=== PATIENT | male | born 1985 | race Caucasian/White ===

== ENCOUNTER 2016-12-22 20:53 | Emergency (ER) | payer SELFPAY ==
[~2016-12-22] VITALS: Ht 162.6 cm; Wt 66.1 kg
[~2016-12-22 20:53] MED LIST: TRAM50 PO; Z.0.NO CURRENT MEDS
[2016-12-22 21:02] VITALS: BP 156/87; PULSE 81; RESP 20; TEMP 98.2; O2SAT 99
[2016-12-22] MEDS ORDERED: LAMO100 PO (21:20)
[2016-12-22] MEDS ORDERED: ZOLO100T PO (21:20)
[2016-12-22] MEDS ORDERED: XANA1TAB2 PO (21:20)
[2016-12-22 21:21] VITALS: O2SAT 99
--- NOTE | 2016-12-22 21:22 | PD ---
HPI Chief Complaint: Chest Pain Time Seen by Provider: 21:19 Travel History International Travel<30 days: No Contact w/Intl Traveler<30days: No Traveled to known affect area: No History of Present Illness HPI This is a 31-year-old tobacco user who presents for evaluation of left-sided chest pain. Symptoms started 3-4 days ago. He describes it as a sharp pain which is worse with movement and deep inspiration. He has been using ibuprofen with minimal relief which prompted evaluation. He denies any recent illness. He denies any shortness of breath, cough or congestion, rash, abdominal pain, nausea or vomiting, fevers or chills, flank pain, recent travel, recent surgery , calf swelling. No history of DVT or PE. He has no other complaints at this time. [facility] Past Medical History Diminished Hearing: No Past Surgical History Oral Surgery: Yes (ALL UPPER TEETH EXTRACTED.) Social History Alcohol Use: No Tobacco Use: Yes (1 PPD) Substance Use: No Allergies-Medications (Allergen,Severity, Reaction): Coded Allergies: No Known Allergies (Verified , 12/22/16) Reported Meds & Prescriptions Reported Meds & Active Scripts Active Azithromycin 250 Mg Tab 250 Mg PO DAILY 4 Days Ibuprofen 800 Mg Tab 800 Mg PO Q6HR PRN Reported Xanax (Alprazolam) 1 Mg Tab 1 Mg PO Q8H PRN Lamictal (Lamotrigine) 100 Mg Tab 100 Mg PO DAILY Zoloft (Sertraline HCl) 100 Mg Tab 100 Mg PO DAILY Review of Systems Except as stated in HPI: all other systems reviewed are Neg Physical Exam Narrative GENERAL: Well-developed well-nourished male in no acute distress SKIN: Warm and dry. HEAD: Atraumatic. Normocephalic. EYES: Pupils equal and round. No scleral icterus. No injection or drainage. ENT: No nasal bleeding or discharge. Mucous membranes pink and moist. NECK: Trachea midline. No JVD. CARDIOVASCULAR: Regular rate and rhythm. No murmur appreciated. RESPIRATORY: No accessory muscle use. Clear to auscultation. Breath sounds equal bilaterally. No crackles no wheezing or rhonchi GASTROINTESTINAL: Abdomen soft, non-tender, nondistended. Hepatic and splenic margins not palpable. MUSCULOSKELETAL: No obvious deformities. There is no pitting edema. There is no calf tenderness. There is reproducible tenderness to palpation to the anterior left lower chest wall. NEUROLOGICAL: Awake and alert. No obvious cranial nerve deficits. Motor grossly within normal limits. Normal speech. PSYCHIATRIC: Appropriate mood and affect; insight and judgment normal. Data Data Last Documented VS Vital Signs Date Time Temp Pulse Resp B/P (MAP) Pulse Ox O2 Delivery O2 Flow Rate FiO2 12/22/16 22:19 78 18 132/66 (88) 98 Room Air 12/22/16 21:02 98.2 Orders Orders Electrocardiogram (12/22/16 21:18) Basic Metabolic Panel (Bmp) (12/22/16 21:18) Ckmb (Isoenzyme) Profile (12/22/16 21:18) Complete Blood Count With Diff (12/22/16 21:18) D-Dimer (12/22/16 21:18) Troponin I (12/22/16 21:18) Chest, Single Ap (12/22/16 21:18) Ecg Monitoring (12/22/16 21:18) Iv Access Insert/Monitor (12/22/16 21:18) Oximetry (12/22/16 21:18) Ketorolac Inj (Toradol Inj) (12/22/16 21:30) CKMB (12/22/16 21:48) CKMB% (12/22/16 21:48) Azithromycin (Zithromax) (12/22/16 23:00) Labs Laboratory Tests Test 12/22/16 21:48 White Blood Count 10.0 TH/MM3 Red Blood Count 4.19 MIL/MM3 Hemoglobin 13.0 GM/DL Hematocrit 37.9 % Mean Corpuscular Volume 90.5 FL Mean Corpuscular Hemoglobin 31.0 PG Mean Corpuscular Hemoglobin Concent 34.3 % Red Cell Distribution Width 12.4 % Platelet Count 252 TH/MM3 Mean Platelet Volume 7.8 FL Neutrophils (%) (Auto) 49.3 % Lymphocytes (%) (Auto) 37.3 % Monocytes (%) (Auto) 11.8 % Eosinophils (%) (Auto) 1.1 % Basophils (%) (Auto) 0.5 % Neutrophils # (Auto) 5.0 TH/MM3 Lymphocytes # (Auto) 3.7 TH/MM3 Monocytes # (Auto) 1.2 TH/MM3 Eosinophils # (Auto) 0.1 TH/MM3 Basophils # (Auto) 0.0 TH/MM3 CBC Comment DIFF FINAL Differential Comment D-Dimer Quantitative (PE/DVT) 0.42 MG/L FEU Blood Urea Nitrogen 7 MG/DL Creatinine 1.10 MG/DL Random Glucose 90 MG/DL Calcium Level 8.9 MG/DL Sodium Level 140 MEQ/L Potassium Level 3.5 MEQ/L Chloride Level 102 MEQ/L Carbon Dioxide Level 32.2 MEQ/L Anion Gap 6 MEQ/L Estimat Glomerular Filtration Rate 77 ML/MIN Total Creatine Kinase 122 U/L Troponin I LESS THAN 0.02 NG/ML MDM Medical Decision Making Medical Screen Exam Complete: Yes Emergency Medical Condition: Yes Medical Record Reviewed: Yes Differential Diagnosis Pleurisy, costochondritis, rib fracture, spontaneous pneumothorax, pulmonary embolism, pericarditis, myocarditis, aortic dissection Narrative Course 31-year-old male with history of tobacco abuse presents with left-sided sharp chest pain which is reproduced with deep inspiration and movement. On examination his pain is reproduced with palpation of the anterior left lower chest wall. His pain is pleuritic in nature. Plan is for basic lab work, EKG, chest x-ray. The patient will be placed on ECG monitoring. Toradol will be administered. EKG reveals sinus rhythm, T-wave inversions noted in V3 and V4. CBC is unremarkable. D-dimer is within normal limits. Chest x-ray reveals small right lower lung infiltrate. At this point the plan will be to treat the patient for his right lower lobe consolidation with azithromycin, first dose provided tonight. He is pleuritic chest pain will be treated with ibuprofen. Recommended follow-up with primary care physician in one to 2 weeks for repeat chest x-ray to ensure resolution of the right lower lung infiltrate. He is stable for discharge. Procedures EKG Prior to Arrival: Yes Diagnosis Primary Impression: Pleurisy Additional Impression: Lung infiltrate Referrals: [facility] Additional Instructions: Please provide the patient a copy of his chest x-ray radiology report upon discharge. Avoid tobacco products. Take medication as prescribed. As discussed follow-up with primary care physician in one to 2 weeks and return for any emergent medical conditions. Med/Other Pt SpecificInfo: Prescription(s) given Scripts Azithromycin (Azithromycin) 250 Mg Tab 250 MG PO DAILY for Infection for 4 Days, #4 TAB 0 Refills Prov: Silver Barksdale MD 12/22/16 Ibuprofen (Ibuprofen) 800 Mg Tab 800 MG PO Q6HR Y for PAIN, #40 TAB 0 Refills Prov: Silver Barksdale MD 12/22/16 Disposition: 01 DISCHARGE HOME Condition: Stable Tani Nunez Dec 22, 2016 21:22
[2016-12-22] MEDS ORDERED: KETOROLAC TROMETHAMINE 30 MG/ML (IVP) VIAL IV PUSH ONE (21:30)
--- NOTE | 2016-12-22 21:43 | RADRPT ---
EXAM DATE/TIME: 12/22/2016 21:29 [place] COMPARISON: No previous studies available for comparison. INDICATIONS : Chest pain. MEDICAL HISTORY : SURGICAL HISTORY : None. ENCOUNTER: Initial ACUITY: 1 day PAIN SCORE: 6/10 LOCATION: Left chest FINDINGS: Frontal view of the chest demonstrates a small patchy infiltrate in the lower right lung without loss of delineation of the right hemidiaphragm. Left lung is clear. Heart is normal in size. Both tatianna diaphragms are well delineated. CONCLUSION: Small right lower lung non-consolidative infiltrate. Constantino Tamayo MD on December 22, 2016 at 21:41 Board Certified Radiologist. This report was verified electronically.
[2016-12-22 22:00] LABS: BASOPHIL % 0.5 % (0.0-2.0); EOSINOPHIL # 0.1 TH/MM3 (0-0.4); EOSINOPHIL % 1.1 % (0.0-4.0); HEMATOCRIT 37.9 % (39.0-51.0); HEMO FLAGS DIFF FINAL; LYMPH % 37.3 % (9.0-44.0); LYMPHOCYTE # 3.7 TH/MM3 (1.0-4.8); MEAN CELL VOLUME 90.5 FL (80.0-100.0); MEAN CORPUSCULAR HGB CONC 34.3 % (32.0-36.0); MONO % 11.8 % (0.0-8.0); NEUT % 49.3 % (16.0-70.0); PLATELET COUNT 252 TH/MM3 (150-450); RED BLOOD COUNT 4.19 MIL/MM3 (4.50-5.90); RED CELL DISTRIBUTION WIDTH 12.4 % (11.6-17.2)
[2016-12-22 22:19] VITALS: BP 132/66; PULSE 78; RESP 18; O2SAT 98
--- NOTE | 2016-12-22 22:39 | EKG ---
Date Performed: 12/22/2016 Time Performed: 21:35:04 PTAGE: 31 years EKG: Sinus rhythm ST/T-WAVE ABNORMALITY, CONSIDER ANTEROLATERAL ISCHEMIA ABNORMAL ECG PREVIOUS TRACING : 04/18/2012 07.58 Compared to previous tracing, inferior and anterolateral ST /T abnormalities are now present. DOCTOR: Kyree Chino Interpretating Date/Time 12/22/2016 22:39:03
[2016-12-22 22:54] LABS: ANION GAP 6 MEQ/L (5-15); BICARBONATE 32.2 MEQ/L (21.0-32.0); BLOOD UREA NITROGEN 7 MG/DL (7-18); CHLORIDE 102 MEQ/L (98-107); GLOMERULAR FILTRATION RATE 77 ML/MIN (>89); POTASSIUM 3.5 MEQ/L (3.5-5.1); SODIUM (NA) 140 MEQ/L (136-145)
[2016-12-22 22:55] LABS: CREATINE KINASE 122 U/L (39-308)
[2016-12-22] MEDS ORDERED: AZIT250T3 PO (22:57)
[2016-12-22] MEDS ORDERED: IBUP800T23 PO (22:57)
[2016-12-22] MEDS ORDERED: AZITHROMYCIN 250 MG TAB PO ONE (23:00)
[2016-12-22 23:23] LABS: CKMB 2.2 NG/ML (0.5-3.6)
[2016-12-22 23:24] VITALS: BP 136/70; PULSE 76; RESP 18; O2SAT 98
== END 2016-12-22 23:26 | disposition home or self-care (01) ==
LOC: PHED 20:53
DX: R09.1 Pleurisy (principal); R91.8 Other nonspecific abnormal finding of lung field; R94.31 Abnormal electrocardiogram [ECG] [EKG]; F17.200 Nicotine dependence, unspecified, uncomplicated
CPT/HCPCS: 71010; 80048; 82550; 82552; 84484; 85025; 85379; 93005; 96374; 99285; J1885

== ENCOUNTER 2017-06-14 13:04 | Emergency (ER) | payer SELFPAY ==
[~2017-06-14] VITALS: Ht 162.6 cm; Wt 65.8 kg
[~2017-06-14 13:04] MED LIST changes: +AZIT250T3 PO; +IBUP1TAB7 PO; +LAMO100 PO; -TRAM50 PO; +XANA1TAB2 PO; -Z.0.NO CURRENT MEDS; +ZOLO100T PO
[2017-06-14 13:05] VITALS: BP 133/73; PULSE 87; RESP 16; TEMP 98.6; O2SAT 97
[2017-06-14] MEDS ORDERED: METH40TA PO (14:27)
[2017-06-14] MEDS ORDERED: CLINDAMYCIN 150 MG CAP PO ONE (14:45)
[2017-06-14] MEDS ORDERED: PERI0.126 SWISH-SPIT (14:54)
[2017-06-14] MEDS ORDERED: CLIN150 PO (14:54)
--- NOTE | 2017-06-14 14:55 | PD ---
HPI Chief Complaint: Oral / Dental Pain or Problem Time Seen by Provider: 14:28 Travel History International Travel<30 days: No Contact w/Intl Traveler<30days: No Traveled to known affect area: No History of Present Illness HPI The patient is a 31-year-old male who presents to the emergency department for dental abscess. The patient states he took a course of penicillin for a lower right dental abscess. He continues to have mild swelling of the affected area with drainage from the tooth. He has been unable to follow-up with a dentist. Patient has already had all of his upper teeth removed, only has a few lower teeth, however, saving money to be seen by a dentist and have them removed. He took penicillin, however, the swelling continues. He denies any sensitivity to mastication, heat, or cold. He denies any significant cervical swelling or fever. He is requesting a change in antibiotics to see if the abscess will resolve. Symptoms are mild to moderate. No current alleviating factors. PFSH Past Medical History Medical History: Denies Significant Hx Diminished Hearing: No Tetanus Vaccination: < 5 Years Influenza Vaccination: Yes Past Surgical History Oral Surgery: Yes (ALL UPPER TEETH EXTRACTED) Social History Alcohol Use: No Tobacco Use: Yes (1 PPD) Substance Use: No Allergies-Medications (Allergen,Severity, Reaction): Coded Allergies: No Known Allergies (Verified Adverse Reaction, Unknown, 06/14/17) Reported Meds & Prescriptions Reported Meds & Active Scripts Active Reported Methadone (Methadone HCl) 40 Mg Tab 180 Mg PO DAILY Lamictal (Lamotrigine) 100 Mg Tab 100 Mg PO BID Review of Systems General / Constitutional: No: Fever HENT: Positive: Dental Difficulties, No: Neck Pain Gastrointestinal: No: Nausea, Vomiting Musculoskeletal: No: Myalgias Skin: No Rash Physical Exam Narrative GENERAL: Awake, alert, pleasant 31-year-old male who appears his stated age and is in no acute respiratory distress. SKIN: Focused skin assessment warm/dry. HEAD: Atraumatic. Normocephalic. EYES: Pupils equal and round. No scleral icterus. No injection or drainage. ENT: No nasal bleeding or discharge. TMs are translucent. EACs are clear. Upper dentures noted. Lower dentition reveals mostly avulsed teeth at the gumline over the anterior aspect. Mild swelling along the right mandibular area but no palpable abscess. NECK: Trachea midline. No JVD. No significant cervical lymphadenopathy noted. MUSCULOSKELETAL: No obvious deformities. No clubbing. No cyanosis. No edema. NEUROLOGICAL: Awake and alert. No obvious cranial nerve deficits. Motor grossly within normal limits. Normal speech. PSYCHIATRIC: Appropriate mood and affect; insight and judgment normal. Data Data Last Documented VS Vital Signs Date Time Temp Pulse Resp B/P (MAP) Pulse Ox O2 Delivery O2 Flow Rate FiO2 06/14/17 13:05 98.6 87 16 133/73 (93) 97 Orders Orders Clindamycin (Cleocin) (06/14/17 14:45) [facility] Medical Decision Making Medical Screen Exam Complete: Yes Emergency Medical Condition: Yes Medical Record Reviewed: Yes Differential Diagnosis Differential diagnosis includes dental abscess, odontalgia, osteomyelitis, ANUG , gingivitis. Narrative Course The patient appears to have a small abscess, however, there is no head to the affected area. I do not believe it is ready to be drained. The patient will be placed on clindamycin and Peridex. He is advised to follow-up with a dentist. Return if symptoms worsen or progress. Diagnosis Primary Impression: Dental abscess Patient Instructions: General Instructions Additional Instructions: Follow-up with a dentist. Medications as directed. Return if symptoms worsen or progress. Tylenol and/or Motrin as needed for pain. Med/Other Pt SpecificInfo: Prescription(s) given Scripts Chlorhexidine Gluconate (Mouth) Liq (Peridex Liq) 0.12% Soln 15 ML SWISH-SPIT BID, #473 ML 0 Refills Prov: David Pugh MD 06/14/17 Clindamycin (Cleocin) 150 Mg Cap 150 MG PO Q6H for Infection for 10 Days, #40 CAP 0 Refills Prov: David Pugh MD 06/14/17 Disposition: 01 DISCHARGE HOME Condition: Stable David Pugh MD Jun 14, 2017 14:54
== END 2017-06-14 15:10 | disposition home or self-care (01) ==
LOC: PHED 13:04 → PHEFT 15:10
DX: K04.7 Periapical abscess without sinus (principal); F17.200 Nicotine dependence, unspecified, uncomplicated
CPT/HCPCS: 99283

== ENCOUNTER 2017-06-21 09:34 | Emergency (ER) | payer SELFPAY ==
[~2017-06-21] VITALS: Ht 165.1 cm; Wt 64.0 kg
[~2017-06-21 09:34] MED LIST changes: -AZIT250T3 PO; +CLIN150 PO; -IBUP1TAB7 PO; +METH40TA PO; +PERI0.126 SWISH-SPIT; -XANA1TAB2 PO; -ZOLO100T PO
[2017-06-21 09:36] VITALS: BP 139/78; PULSE 74; RESP 16; TEMP 98.1; O2SAT 98
[2017-06-21 11:08] VITALS: BP 139/87; PULSE 70; RESP 18; O2SAT 98
[2017-06-21] MEDS ORDERED: AUGM875T3 PO (11:37)
--- NOTE | 2017-06-21 11:38 | PD ---
HPI Chief Complaint: Oral / Dental Pain or Problem Time Seen by Provider: 11:13 Travel History International Travel<30 days: No Contact w/Intl Traveler<30days: No Traveled to known affect area: No History of Present Illness HPI 31-year-old male here with dental abscess 2 weeks. He denies fever or chills. He reports he was recently prescribed clindamycin but failed to follow-up with dentist as instructed. He is reporting continued pain at the site of the abscess. Symptom severity is mild. No difficulty swallowing or swelling of the floor the mouth. PFSH Past Medical History Medical History: Denies Significant Hx Diminished Hearing: No Influenza Vaccination: Yes Past Surgical History Oral Surgery: Yes (ALL UPPER TEETH EXTRACTED) Social History Alcohol Use: No Tobacco Use: Yes (1 PPD) Substance Use: No Allergies-Medications (Allergen,Severity, Reaction): Coded Allergies: No Known Allergies (Verified Adverse Reaction, Unknown, 06/21/17) Reported Meds & Prescriptions Reported Meds & Active Scripts Active Augmentin (Amoxicillin-Clavulanate) 875-125 Mg Tab 1 Tab PO BID Peridex Liq (Chlorhexidine Gluconate (Mouth) Liq) 0.12% Soln 15 Ml SWISH-SPIT BID Cleocin (Clindamycin HCl) 150 Mg Cap 150 Mg PO Q6H 10 Days Reported Methadone (Methadone HCl) 40 Mg Tab 180 Mg PO DAILY Lamictal (Lamotrigine) 100 Mg Tab 100 Mg PO BID Review of Systems Except as stated in HPI: all other systems reviewed are Neg General / Constitutional: No: Fever Eyes: No: Visual changes HENT: No: Headaches Cardiovascular: No: Chest Pain or Discomfort Respiratory: No: Shortness of Breath Gastrointestinal: No: Abdominal Pain Genitourinary: No: Dysuria Physical Exam Narrative GENERAL: Alert well-appearing 31-year-old male SKIN: Warm and dry. HEAD: Normocephalic. EYES: No injection or drainage. Mouth: Widespread dental decay. Gum erythema and mild swelling near the right lower first molar. No swelling of the floor the mouth. Uvula is midline. Airway is patent. Normal phonation. NECK: Supple, trachea midline. No lymphadenopathy. Data Data Last Documented VS Vital Signs Date Time Temp Pulse Resp B/P (MAP) Pulse Ox O2 Delivery O2 Flow Rate FiO2 06/21/17 11:43 06/21/17 11:08 70 18 98 Room Air 06/21/17 09:36 98.1 Orders Orders Ed Discharge Order (06/21/17 11:39) MDM Medical Decision Making Medical Screen Exam Complete: Yes Emergency Medical Condition: Yes Differential Diagnosis Dental abscess, periodontal disease, dental caries Narrative Course 31-year-old male with dental abscess. He is nontoxic-appearing. No swelling of the floor of mouth. He was recently treated with clindamycin. He failed to schedule an appointment with a dentist. He'll be prescribed Augmentin and given a dental clinic handout Diagnosis Primary Impression: Dental abscess Referrals: Dentist Additional Instructions: Antibiotics as directed. Schedule an appointment with her dentist Scripts Amoxicillin-Clavulanate (Augmentin) 875-125 Mg Tab 1 TAB PO BID for Infection, #20 TAB 0 Refills Prov: Whitney Rojas 06/21/17 Disposition: 01 DISCHARGE HOME Condition: Stable Whitney Rojas Jun 21, 2017 11:38
== END 2017-06-21 11:44 | disposition home or self-care (01) ==
LOC: PHED 09:34 → PHEFT 11:44
DX: K04.7 Periapical abscess without sinus (principal); K02.9 Dental caries, unspecified; F17.200 Nicotine dependence, unspecified, uncomplicated; Z79.899 Other long term (current) drug therapy
CPT/HCPCS: 99283